=== PATIENT | male | born 1970 | race African-American/Black ===

== ENCOUNTER 2019-05-10 11:12 | Emergency (ER) | payer SELFPAY ==
[~2019-05-10] VITALS: Ht 177.8 cm; Wt 70.0 kg
[2019-05-10 11:25] VITALS: BP 144/79
--- NOTE | 2019-05-10 12:44 | PHYS DOC ---
Past Medical History Past Medical History: No Pertinent History Past Surgical History: No Surgical History Alcohol Use: Occasionally Adult General Chief Complaint Chief Complaint: ABNORMAL LABS HPI HPI Patient is a 48 year old male who presents with states on March 21, 2019 he donated plasma. States he was called and they told him that the plasma showed a preliminary positive for syphilis. Patient states he did have a rash in the past on the bottom of his feet and a canker sore on the penis. Both of which he states saw gone. States he has no signs or symptoms now. Patient states that 2 days ago he woke up and began seeing a black spot to his vision in his right eye. He denies any injury to his eye. Denies any pain at this time. Review of Systems Review of Systems Eyes: Denies change in visual acuity, redness, or eye pain. Black spot in his vision on right eye. [] All other systems were reviewed and found to be within normal limits, except as documented in this note. Current Medications Current Medications Current Medications Medications (Trade) Dose Ordered Sig/Simona Start Time Stop Time Status Last Admin Dose Admin Fluorescein Sodium (Ful-Anita) 2 strip 1X ONCE 05/10/19 14:30 05/10/19 14:31 DC 05/10/19 14:26 2 STRIP Penicillin G Benzathine (Bicillin L-A) 2,400,000 unit 1X ONCE 05/10/19 14:15 05/10/19 14:16 DC 05/10/19 14:34 2,400,000 UNIT Tetracaine HCl (Tetracaine) 1 drop 1X ONCE 05/10/19 14:30 05/10/19 14:31 DC 05/10/19 14:27 1 DROP Allergies Allergies Allergies Coded Allergies Type Severity Reaction Last Updated Verified No Known Drug Allergies 05/10/19 No Physical Exam Physical Exam Constitutional: Well developed, well nourished, no acute distress, non-toxic appearance. [] HENT: Normocephalic, atraumatic, bilateral external ears normal, oropharynx moist, no oral exudates, nose normal. [] Eyes: PERRLA, EOMI, conjunctiva normal, no discharge. [] Neck: Normal range of motion, no tenderness, supple, no stridor. [] Cardiovascular:Heart rate regular rhythm, no murmur [] Lungs & Thorax: Bilateral breath sounds clear to auscultation [] Abdomen: Bowel sounds normal, soft, no tenderness, no masses, no pulsatile masses. [] Skin: Warm, dry, no erythema, no rash. [] Back: No tenderness, no CVA tenderness. [] Extremities: No tenderness, no cyanosis, no clubbing, ROM intact, no edema. [] Neurologic: Alert and oriented X 3, normal motor function, normal sensory function, no focal deficits noted. [] Psychologic: Affect normal, judgement normal, mood normal. [] Normal Physical Exam Current Patient Data Vital Signs Vital Signs Date Time Temp Pulse Resp B/P (MAP) Pulse Ox O2 Delivery O2 Flow Rate FiO2 05/10/19 11:25 98.6 107 18 144/79 (100) 98 Room Air 98.6 Lab Values Laboratory Tests Test 05/10/19 12:45 Urine Collection Type Unknown Urine Color Yellow Urine Clarity Clear Urine pH 5.0 Urine Specific Warnock 1.020 Urine Protein 30 mg/dL (NEG-TRACE) Urine Glucose (UA) Negative mg/dL (NEG) Urine Ketones (Stick) Trace mg/dL (NEG) Urine Blood Negative (NEG) Urine Nitrite Negative (NEG) Urine Bilirubin Negative (NEG) Urine Urobilinogen Dipstick 1.0 mg/dL (0.2 mg/dL) Urine Leukocyte Esterase Negative (NEG) Urine RBC 0 /HPF (0-2) Urine WBC 0 /HPF (0-4) Urine Squamous Epithelial Cells Few /LPF Urine Bacteria 0 /HPF (0-FEW) Urine Hyaline Casts Few /HPF Urine Mucus Slight /LPF Treponema pallidum Antibody Reactive (Nonreactive) EKG EKG [] Radiology/Procedures Radiology/Procedures [] Impressions: [facility] [address] [place], [place] [id number] IMAGING REPORT Signed PATIENT: FARHAD ZULETA ACCOUNT: [id number] : 1970 LOCATION: ER AGE: 48 SEX: M EXAM STATUS: REG ER ORD. PHYSICIAN: GERRI GOMES APRN REASON: RT SIDED black spot in his vision PROCEDURE: CT HEAD WO CONTRAST EXAM: Head CT without contrast. HISTORY: Field defect. Vision changes. TECHNIQUE: Computed tomographic images of the head were obtained without contrast. *One or more of the following individualized dose reduction techniques were utilized for this examination: 1. Automated exposure control. 2. Adjustment of the mA and/or kV according to patient size. 3. Use of iterative reconstruction technique. COMPARISON: None. FINDINGS: There is no acute or subacute extra-axial or intraparenchymal hemorrhage. There is no mass effect or midline shift. There is no hydrocephalus. The ferreira-white matter differentiation pattern is intact. There is an incidental right shanice bullosa. The paranasal sinuses are otherwise unremarkable. The mastoid air cells are clear. There is no suspicious calvarial lesion. IMPRESSION: No acute intracranial findings. Electronically signed by: Elaine Almanza MD (05/10/2019 1:02 PM) [facility] DICTATED and SIGNED BY: ELAINE ALMANZA MD DATE: 05/10/19 1302 Course & Med Decision Making Course & Med Decision Making PERRLA. Patient can follow me in the room. He states that when he looks straight out my face he can't see my face because of the black spot but he can see me move my arms out sides. No rashes on the patient and no sores on the patient are inside of his mouth. He denies any penile discharge. Patient denies dysuria, abdominal pain, nausea, vomiting, dizziness, headache, weakness, numbness or tingling, diarrhea. Alert and oriented. Speaks in full clear sentences. Ambulatory at the steady gait. Syphillis positive. Patient is treated with penicillin. CT of the head is negative. I have spoken to Dr. Webb about the patient vision loss. He is coming in to see the patient and to do a exam. Dr. Webb was here and evaluated the patient. A central abnormality was noted. No emergent situation at this time. Patient is given paperwork by eye doctor so he can follow up for further testing continuation of care. Dragon Disclaimer Dragon Disclaimer This electronic medical record was generated, in whole or in part, using a voice recognition dictation system. Departure Departure Impression: Primary Impression: Syphilis Additional Impression: Vision loss of right eye Disposition: HOME, SELF-CARE Condition: STABLE Referrals: NO PCP (PCP) BRADLY WEBB MD Patient Instructions: Eye - Floaters, Sexually Transmitted Disease Additional Instructions: Tell all sexual partners need to be treated for syphilis. Follow-up with ophthalmology for continuation of care. Problem Qualifiers GERRI GOMES APRN May 10, 2019 12:44
[2019-05-10 13:01] LABS: BILIRUBIN,URINE NEGATIVE (NEG); CLARITY,URINE CLEAR; COLOR,URINE YELLOW; NITRITE,URINE NEGATIVE (NEG); PROTEIN,URINE 30 mg/dL (NEG-TRACE)
--- NOTE | 2019-05-10 13:06 | RAD ---
EXAM: Head CT without contrast. HISTORY: Field defect. Vision changes. TECHNIQUE: Computed tomographic images of the head were obtained without contrast. *One or more of the following individualized dose reduction techniques were utilized for this examination: 1. Automated exposure control. 2. Adjustment of the mA and/or kV according to patient size. 3. Use of iterative reconstruction technique. COMPARISON: None. FINDINGS: There is no acute or subacute extra-axial or intraparenchymal hemorrhage. There is no mass effect or midline shift. There is no hydrocephalus. The ferreira-white matter differentiation pattern is intact. There is an incidental right shanice bullosa. The paranasal sinuses are otherwise unremarkable. The mastoid air cells are clear. There is no suspicious calvarial lesion. IMPRESSION: No acute intracranial findings. Electronically signed by: Elaine Jacobs MD (05/10/2019 1:02 PM) [facility]
[2019-05-10 13:14] LABS: BACTERIA,URINE 0 /HPF (0-FEW); HYALINE CASTS, URINE FEW /HPF; RBC,URINE 0 /HPF (0-2); SQUAMOUS EPITHELIAL CELL,UR FEW /LPF; WBC,URINE 0 /HPF (0-4)
[2019-05-10] MEDS ORDERED: PENICILLIN G BENZATHINE LA 2,400,000 UNIT/4 ML DISP.SYRIN. IM ONE (14:15)
[2019-05-10] MEDS ORDERED: TETRACAINE 0.5% OPHTH SOLUTION 4ML BOTTLE. OD ONE (14:30)
[2019-05-10] MEDS ORDERED: FLUORESCEIN OPHTH TEST STRIP. OD ONE (14:30)
== END 2019-05-10 15:30 | disposition home or self-care (01) ==
LOC: ER 11:12
DX: A53.9 Syphilis, unspecified (principal); H54.61 Unqualified visual loss, right eye, normal vision left eye
CPT/HCPCS: 70450; 81001; 86592; 86593; 87491; 87591; 96372; 99285; J0561